=== PATIENT | female | born 1990 | race African-American/Black ===

== ENCOUNTER 2018-12-31 21:21 | Emergency (ER) | payer OTHER ==
--- OUTSIDE RECORDS SUMMARY | 2018-12-31 21:23 | XMS REPORT ---
:1990 [facility] Address [address] [place] [address] Dr. Kidd [address] [place] [id number] Care Team Providers Name Role Phone Unavailable Unavailable Unavailable Problems This patient has no known problems. Allergies, Adverse Reactions, Alerts This patient has no known allergies or adverse reactions. Medications This patient has no known medications.
[2018-12-31] MEDS ORDERED: LEVALBUTEROL 1.25 MG/3 ML NEB ONE ×2 (23:24→23:25)
--- NOTE | 2019-01-01 00:05 | EDPHYS ---
Physician Documentation [facility] Name: Tonya Sánchez Age: 28 yrs Sex: Female : 1990 Arrival Date: 12/31/2018 Time: 21:24 Bed 25 Private MD: Kristian Buchanan B ED Physician Berhane Evans HPI: 12/31 22:54 This 28 yrs old Black Female presents to ER via Ambulatory with complaints of Shortness jmm Of Breath. 22:54 The patient has shortness of breath at rest. Onset: The symptoms/episode began/occurred jmm gradually, 1 month(s) ago. Duration: The symptoms are continuous. The patient's shortness of breath is aggravated by nothing, is alleviated by nothing. Associated signs and symptoms: Pertinent negatives: fever. This is a 28 year old female with a history of anxiety, depression, seizures, that presents to the ED with complaints of cough, wheezing shortness of breath for 1 month worsening today. patient denies productive cough or fever. Patient denies chest pain. 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 - Social history:: Smoking status: Patient/guardian denies using tobacco. - Ebola Screening: : No symptoms or risks identified at this time. ROS: 22:54 Constitutional: Negative for fever, chills, and weight loss, Cardiovascular: Negative jmm for chest pain, palpitations, and edema. 22:54 Abdomen/GI: Negative for abdominal pain, nausea, vomiting, diarrhea, and constipation, Back: Negative for injury and pain. 22:54 Respiratory: Positive for cough, shortness of breath. 22:54 All other systems are negative. Exam: 22:54 Constitutional: This is a well developed, well nourished patient who is awake, alert, jmm and in no acute distress. Head/Face: atraumatic. Eyes: EOMI, no conjunctival erythema appreciated ENT: Moist Mucus Membranes Neck: Trachea midline, Supple Chest/axilla: Normal chest wall appearance and motion. Cardiovascular: Regular rate and rhythm. No edema appreciated 22:54 Skin: General appearance color normal MS/ Extremity: Moves all extremities, no obvious deformities appreciated, no edema noted to the lower extremities Neuro: Awake and alert, normal gait Psych: Behavior is normal, Mood is normal, Patient is cooperative and pleasant 22:54 Respiratory: the patient does not display signs of respiratory distress, Respirations: normal, Breath sounds: wheezing: that is mild, is heard in the left posterior upper lobe and left posterior lower lobe. Vital Signs: 21:35 BP 137 / 97; Pulse 72; Resp 16; Temp 97.7(O); Pulse Ox 100% on R/A; Weight 67.59 kg lp1 (R); Height 5 ft. 7 in. (170.18 cm); Pain 0/10; 22:50 BP 111 / 81; Pulse 74; Resp 18; Temp 98; Pulse Ox 100% on R/A; Pain 2/10; mg2 01/01 00:04 Pulse 92; Resp 18; Pulse Ox 100% on R/A; mg2 12/31 21:35 Body Mass Index 23.34 (67.59 kg, 170.18 cm) lp1 MDM: 12/31 22:54 Patient medically screened. [facility] 01/01 00:03 Data reviewed: vital signs, nurses notes. Counseling: I had a detailed discussion with abdi the patient and/or guardian regarding: the historical points, exam findings, and any diagnostic results supporting the discharge/admit diagnosis, radiology results, the need for outpatient follow up, to return to the emergency department if symptoms worsen or persist or if there are any questions or concerns that arise at home. ED course: Patient states feeling much better after nebulizer treatment. PE findings consistent with bronchitis. PERC negative. Patient advised to follow up with pcp. Patient is given strict return precautions. Patient understood and agrees with the plan of care. . 12/31 22:58 Order name: Chest Pa And Lat (2 Views) XRAY [facility] Administered Medications: 12/31 23:14 Drug: Xopenex (3) 1.25 mg Route: Inhalation; lp1 01/01 00:23 Follow up: Response: No adverse reaction; Marked relief of symptoms mg2 Disposition: 01/01/19 00:04 Discharged to Home. Impression: Acute bronchitis. - Condition is Stable. - Discharge Instructions: Acute Bronchitis, Adult. - Prescriptions for Prednisone 20 mg Oral Tablet - take 3 tablet by ORAL route once daily for 5 days; 15 tablet. Albuterol Sulfate 90 mcg/actuation - inhale 1-2 puff by INHALATION route every 4-6 hours; 1 Inhaler. - Medication Reconciliation Form, Thank You Letter, Antibiotic Education, Prescription Opioid Use form. - Follow up: Private Physician; When: 2 - 3 days; Reason: Recheck today's complaints, Continuance of care, Re-evaluation by your physician. Addendum: 01/02/2019 13:05 Co-signature as Attending Physician, Berhane Evans MD. g s Signatures: Dispatcher [employer] EDMS Sixto Degroot PA PA jmm Pena, Laura, RN RN lp1 Berhane Evans MD MD gs Kenny Matias, RN RN mg2 Corrections: (The following items were deleted from the chart) 01/01 00:24 00:04 01/01/2019 00:04 Discharged to Home. Impression: Acute bronchitis. Condition is mg2 Stable. Forms are Medication Reconciliation Form, Thank You Letter, Antibiotic Education, Prescription Opioid Use. Follow up: Private Physician; When: 2 - 3 days; Reason: Recheck today's complaints, Continuance of care, Re-evaluation by your physician. abdi
--- NOTE | 2019-01-01 00:05 | ER ---
Nurse's Notes [facility] Name: Tonya Sánchez Age: 28 yrs Sex: Female : 1990 Arrival Date: 12/31/2018 Time: 21:24 Bed 25 Private MD: Kristian Buchanan B Diagnosis: Acute bronchitis Presentation: 12/31 21:34 Presenting complaint: Patient states: Shortness of breath that began an hour and a half lp1 ago; states has had a dry cough x 4 weeks; States episodes of shortness of breath but this has lasted longer. Transition of care: patient was not received from another setting of care. Onset of symptoms was December 31, 2018. Risk Assessment: Do you want to hurt yourself or someone else? Patient reports no desire to harm self or others. Initial Sepsis Screen: Does the patient meet any 2 criteria? No. Patient's initial sepsis screen is negative. Does the patient have a suspected source of infection? No. Patient's initial sepsis screen is negative. Care prior to arrival: None. 21:34 Method Of Arrival: Ambulatory lp1 21:34 Acuity: ARTHUR 3 lp1 Triage Assessment: 21:36 General: Appears in no apparent distress. Behavior is calm, cooperative. Respiratory: lp1 Reports shortness of breath cough that is dry, Respiratory effort is even, unlabored, Respiratory pattern is regular, Breath sounds are clear bilaterally. Onset: The symptoms/episode began/occurred 4 weeks, the patient has mild shortness of breath. 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 - Social history:: Smoking status: Patient/guardian denies using tobacco. - Ebola Screening: : No symptoms or risks identified at this time. Screenin:36 Abuse screen: Denies threats or abuse. Denies injuries from another. Nutritional lp1 screening: No deficits noted. Tuberculosis screening: No symptoms or risk factors identified. Fall Risk None identified. Assessment: 22:51 General: Appears in no apparent distress. comfortable, Behavior is calm, cooperative. mg2 Pain: Complains of pain in head. Neuro: Level of Consciousness is awake, alert, obeys commands, Oriented to person, place, time, situation, Reports headache. Cardiovascular: Capillary refill < 3 seconds Patient's skin is warm and dry. Respiratory: Airway is patent Respiratory effort is even, unlabored, Respiratory pattern is regular, symmetrical, Breath sounds are clear bilaterally. in left posterior upper lobe, right posterior upper lobe, left posterior lower lobe, right posterior middle lobe and right posterior lower lobe. GI: No signs and/or symptoms were reported involving the gastrointestinal system. : No signs and/or symptoms were reported regarding the genitourinary system. EENT: No signs and/or symptoms were reported regarding the EENT system. Derm: Skin is intact, is healthy with good turgor, Skin is pink, warm \T\ dry. normal. Musculoskeletal: Circulation, motion, and sensation intact. Capillary refill < 3 seconds. 01/01 00:23 Reassessment: Patient states feeling better. Patient states symptoms have improved. mg2 Vital Signs: 12/31 21:35 BP 137 / 97; Pulse 72; Resp 16; Temp 97.7(O); Pulse Ox 100% on R/A; Weight 67.59 kg lp1 (R); Height 5 ft. 7 in. (170.18 cm); Pain 0/10; 22:50 BP 111 / 81; Pulse 74; Resp 18; Temp 98; Pulse Ox 100% on R/A; Pain 2/10; mg2 01/01 00:04 Pulse 92; Resp 18; Pulse Ox 100% on R/A; mg2 12/31 21:35 Body Mass Index 23.34 (67.59 kg, 170.18 cm) lp1 ED Course: 12/31 21:24 Patient arrived in ED. es 21:25 Kristian Buchanan MD is Private Physician. es 21:35 Triage completed. lp1 21:35 Arm band placed on right wrist. lp1 22:25 Sixto Degroot PA is PHCP. [facility] 22:25 Berhane Evans MD is Attending Physician. [facility] 22:27 Kenny Matias, EDUARDA is Primary Nurse. mg2 22:52 Patient has correct armband on for positive identification. mg2 22:52 No provider procedures requiring assistance completed. Patient did not have IV access mg2 during this emergency room visit. 23:12 X-ray completed. Patient tolerated procedure well. ml 23:14 Chest Pa And Lat (2 Views) XRAY In Process Unspecified. EDMS Administered Medications: 23:14 Drug: Xopenex (3) 1.25 mg Route: Inhalation; lp1 01/01 00:23 Follow up: Response: No adverse reaction; Marked relief of symptoms mg2 Outcome: 00:04 Discharge ordered by MD. patton 00:23 Discharged to home ambulatory. mg2 00:23 Condition: stable 00:23 Discharge instructions given to patient, Instructed on discharge instructions, follow up and referral plans. medication usage, Demonstrated understanding of instructions, follow-up care, medications, Prescriptions given X 2. 00:24 Patient left the ED. mg2 Signatures: Dispatcher [employer] EDMS Sixto Degroot PA PA jmm Salyer, Edna es Lopez, Melissa ml Pena, Laura, RN RN lp1 Kenny Matias RN RN mg2
--- NOTE | 2019-01-01 10:08 | RAD REPORT ---
EXAM DESCRIPTION: XR Chest, 2 Views CLINICAL HISTORY: The patient is 28 years old and is Female; cough, shortness of breath TECHNIQUE: Frontal and lateral views of the chest. COMPARISON: No relevant prior studies available. FINDINGS: LUNGS: Unremarkable. No consolidation. PLEURAL SPACE: Unremarkable. No pneumothorax. HEART: Unremarkable. No cardiomegaly. MEDIASTINUM: Unremarkable. BONES/JOINTS: Unremarkable. IMPRESSION: No acute cardiopulmonary process. Electronically signed by: Yen Santa MD 12/31/2018 11:49 PM CDT Due to temporary technical issues with the PACS/[employer]ency reporting system, reports are being signed by the in house radiologist as a courtesy to ensure prompt reporting. The interpreting radiologist is f ully responsible for the content of the report.
== END 2019-01-01 00:24 | disposition home or self-care (01) ==
LOC: ER 21:21
DX: J20.9 Acute bronchitis, unspecified (principal); F41.9 Anxiety disorder, unspecified; F32.9 Major depressive disorder, single episode, unspecified
CPT/HCPCS: 71046; 99284

== ENCOUNTER 2024-07-27 00:53 | Emergency (ER) | payer OTHER ==
[2024-07-27] MEDS ORDERED: LIDOCAINE 2% W/EPI 1:200,000 MPF 20 ML VIAL IM ONE (01:24)
[2024-07-27] MEDS ORDERED: METOCLOPRAMIDE 5 MG TAB ONE (01:25)
[2024-07-27] MEDS ORDERED: ACETAMINOPHEN 500 MG TAB ONE (01:25)
[2024-07-27] MEDS ORDERED: IBUPROFEN 400 MG TAB ONE (01:25)
[2024-07-27] MEDS ORDERED: LIDOCAINE HCL JELLY 2% 6 ML SYRINGE TOP ONE (01:26)
--- NOTE | 2024-07-27 02:57 | ER ---
Nurse's Notes [facility] Name: Tonya Santiago Age: 34 yrs Sex: Female : 1990 Arrival Date: 07/27/2024 Time: 00:53 Bed 5 Private MD: Diagnosis: Scalp Laceration/ Open wound of scalp Presentation: 07/27 01:13 Chief complaint: Patient states: S/P MISSED A STEP CAUSING HER TO FALL AND HIT HEAD. br2 DENIES LOC. PT ARRIVES TO ER WITH LACERATION TO RIGHT FOREHEAD. PT ADMIT TO ETOH ON BOARD. Coronavirus screen: Client denies travel out of the [place] in the last 14 days. Ebola Screen: Patient denies exposure to infectious person. Initial Sepsis Screen: Does the patient meet any 2 criteria? No. Patient's initial sepsis screen is negative. Does the patient have a suspected source of infection? No. Patient's initial sepsis screen is negative. Risk Assessment: Do you want to hurt yourself or someone else? Patient reports no desire to harm self or others. Onset of symptoms was July 27, 2024 at 00:00. 01:13 Method Of Arrival: Wheelchair br2 01:13 Acuity: ARTHUR 3 br2 01:13 Care prior to arrival: None. Mechanism of Injury: Fall down 1 steps. br2 Historical: - Allergies: 01:15 NKA; br2 - PMHx: 01:15 Anxiety; Depression; br2 - Immunization history:: Adult Immunizations not up to date, Last tetanus immunization: up to date. - Infectious Disease History:: Denies. - Social history:: Smoking status: Patient denies any tobacco usage or history of. Patient uses alcohol, occasionally. Screenin:13 [facility] ED Fall Risk Assessment (Adult) History of falling in the last 3 months, br2 including since admission Yes- single mechanical fall (1 pt) Confusion or Disorientation No (0 pts) Intoxicated or Sedated No (0 pts) Impaired Gait No (0 pts) Mobility Assist Device Used No (0 pt) Altered Elimination No (0 pt) Score/Fall Risk Level 0 - 2 = Low Risk Oriented to surroundings. Abuse screen: Denies threats or abuse. Denies injuries from another. Nutritional screening: No deficits noted. Tuberculosis screening: No symptoms or risk factors identified. Assessment: 01:13 General: Appears in no apparent distress. comfortable, Behavior is calm, cooperative. br2 Pain: Complains of pain in right side of forehead Pain does not radiate. Pain currently is 10 out of 10 on a pain scale. Neuro: Level of Consciousness is awake, alert, obeys commands, Oriented to person, place, time, situation. EENT: No signs and/or symptoms were reported regarding the EENT system. Cardiovascular: Capillary refill < 3 seconds. Respiratory: Airway is patent Respiratory effort is even, unlabored, Respiratory pattern is regular, symmetrical. GI: No signs and/or symptoms were reported involving the gastrointestinal system. : No signs and/or symptoms were reported regarding the genitourinary system. Derm: Skin is moist, Skin is pink, warm \T\ dry. Skin temperature is warm LACERATION Reports pain that is 10 out of 10 on a pain scale. Musculoskeletal: No signs and/or symptoms reported regarding the musculoskeletal system. Injury Description: Laceration sustained to right side of forehead. 02:40 Reassessment: Patient and/or family updated on plan of care and expected duration. Pain br2 level reassessed. Patient is alert, oriented x 3, equal unlabored respirations, skin warm/dry/pink. Vital Signs: 01:13 BP 121 / 85; Pulse 111; Resp 18; Temp 97.2; Pulse Ox 98% on R/A; Weight 64.86 kg; br2 Height 5 ft. 6 in. ; Pain 10/10; 02:40 BP 105 / 79; Pulse 94; Resp 18; Pulse Ox 100% ; Pain 0/10; br2 01:13 Body Mass Index 23.08 (64.86 kg, 167.64 cm) br2 01:13 Pain Scale: Adult br2 02:40 Pain Scale: Adult br2 ED Course: 00:54 Patient arrived in ED. jj6 00:55 Izaiah Mcguire MD is Attending Physician. ec2 01:13 Patient has correct armband on for positive identification. Bed in low position. Call br2 light in reach. Side rails up X 1. Provided Education on: PLAN OF CARE. 01:15 Triage completed. br2 01:23 CT Head Brain wo Cont In Process Unspecified. EDMS 01:50 Taya Cuello RN is Primary Nurse. br2 03:10 Assist provider with laceration repair using sutures. Set up tray. Performed by Izaiah marques2 Shayla MARROQUIN Patient tolerated well. 03:11 Patient did not have IV access during this emergency room visit. br2 Administered Medications: 01:33 Drug: Lidocaine Topical Solution (4%) 10 ml Topical once Route: Topical; Site: forehead;br2 02:00 Follow up: Response: No adverse reaction br2 01:33 Drug: Acetaminophen PO 1000 mg PO once Route: PO; br2 02:00 Follow up: Response: No adverse reaction br2 01:33 Drug: Ibuprofen PO 800 mg PO once Route: PO; br2 02:00 Follow up: Response: No adverse reaction br2 01:33 Drug: MetoCLOPramide PO 10 mg PO once Route: PO; br2 02:00 Follow up: Response: No adverse reaction br2 01:50 Drug: Lidocaine-Epinephrine Infiltration -1%: (1:100,000) 10 ml 20 ml Infiltration br2 once; to bedside Volume: 20 ml; Route: Infiltration; 02:00 Follow up: Response: No adverse reaction br2 Medication: 03:11 VIS not applicable for this client. br2 Outcome: 02:56 Discharge ordered by . ec2 03:10 Discharged to home ambulatory, br2 03:10 Condition: good 03:10 Discharge instructions given to patient, Instructed on discharge instructions, follow up and referral plans. Demonstrated understanding of instructions, follow-up care, 03:11 Patient left the ED. br2 Signatures: Dispatcher [employer] [place] [id number] Izaiah Mcguire MD MD ec2 Taya Cuello RN RN br2
--- NOTE | 2024-07-27 02:57 | EDPHYS ---
Physician Documentation [facility] Name: Tonya Santiago Age: 34 yrs Sex: Female : 1990 Arrival Date: 07/27/2024 Time: 00:53 Bed 5 Private MD: ED Physician Izaiah Mcguire HPI: 07/27 01:20 This 34 yrs old Black Female presents to ER via Wheelchair with complaints of Fall ec2 Injury, Head Injury Without LOC-Adult, Laceration To Head. 01:20 Patient arrives today for evaluation of a head injury. States that she had fallen down ec2 stairs and injured her head and sustained a laceration. Up-to-date on tetanus shot, most recently approximately 1 week ago. No LOC, not on blood thinners. Complaining of head pain.. Historical: - Allergies: 01:15 NKA; br2 - PMHx: 01:15 Anxiety; Depression; br2 - Immunization history:: Adult Immunizations not up to date, Last tetanus immunization: up to date. - Infectious Disease History:: Denies. - Social history:: Smoking status: Patient denies any tobacco usage or history of. Patient uses alcohol, occasionally. ROS: 01:20 Constitutional: as per hpi ec2 Exam: 01:20 Constitutional: GEN: NAD Head: atraumatic Eyes: EOMI Ears: External ears are ec2 normal. CV: tachycardiaLUNGS: no respiratory distress ABD: non-distended SKIN: Approximately 2 cm laceration to the right forehead. MSK: no evidence of trauma Vital Signs: 01:13 BP 121 / 85; Pulse 111; Resp 18; Temp 97.2; Pulse Ox 98% on R/A; Weight 64.86 kg; br2 Height 5 ft. 6 in. ; Pain 10/10; 02:40 BP 105 / 79; Pulse 94; Resp 18; Pulse Ox 100% ; Pain 0/10; br2 01:13 Body Mass Index 23.08 (64.86 kg, 167.64 cm) br2 01:13 Pain Scale: Adult br2 02:40 Pain Scale: Adult br2 Laceration: 02:43 Wound Repair of 2cm ( 0.8in ) subcutaneous laceration to right side of forehead. Distal ec2 neuro/vascular/tendon intact. Anesthesia: Local anesthetic administered with 7 mls of 2% lidocaine. Wound prep: Moderate cleansing. Skin closed with 3 4-0 Silk using simple sutures and sterile technique. Patient tolerated well. MDM: 00:59 Medical Screening Exam initiated ec2 01:20 Data reviewed: vital signs, nurses notes. ED course: Patient arrives today for ec2 evaluation of a head injury. Will obtain CT scan of the head, repair the laceration. Differential diagnosis considered include contusion, laceration, fracture, intracranial brain bleed.. 02:43 ED course: Laceration repaired without issue. Will discharge home have the patient ec2 follow-up back in the ED for removal of stitches.. 02:57 ED course: CT scan of the head on my interpretation shows no acute intracranial brain ec2 bleed.. 07/27 01:08 Order name: CT Head Brain wo Cont ec2 07/27 01:08 Order name: Wound Care; Complete Time: 01:50 ec2 Administered Medications: 01:33 Drug: Lidocaine Topical Solution (4%) 10 ml Topical once Route: Topical; Site: forehead;br2 02:00 Follow up: Response: No adverse reaction br2 01:33 Drug: Acetaminophen PO 1000 mg PO once Route: PO; br2 02:00 Follow up: Response: No adverse reaction br2 01:33 Drug: Ibuprofen PO 800 mg PO once Route: PO; br2 02:00 Follow up: Response: No adverse reaction br2 01:33 Drug: MetoCLOPramide PO 10 mg PO once Route: PO; br2 02:00 Follow up: Response: No adverse reaction br2 01:50 Drug: Lidocaine-Epinephrine Infiltration -1%: (1:100,000) 10 ml 20 ml Infiltration br2 once; to bedside Volume: 20 ml; Route: Infiltration; 02:00 Follow up: Response: No adverse reaction br2 Disposition Summary: 07/27/24 02:56 Discharge Ordered Notes: You need to have the stitches removed in 7 to 10 days. Location: Home ec2 Condition: Stable ec2 Diagnosis - Scalp Laceration/ Open wound of scalp ec2 Followup: ec2 - With: Private Physician - When: - Reason: Re-evaluation by your physician Discharge Instructions: - Discharge Summary Sheet ec2 - Sutures, [place], or Adhesive Wound Closure, [id number] ec2 Forms: - Medication Reconciliation Form ec2 - Antibiotic Education ec2 - Prescription Opioid Use ec2 - Patient Portal Instructions ec2 - Leadership Thank You Letter ec2 Signatures: Dispatcher [employer] EDMS Izaiah Mcguire MD MD ec2 Taya Cuello RN RN br2 Corrections: (The following items were deleted from the chart) 01:21 01:20 Constitutional: GEN: NAD Head: atraumatic Eyes: EOMI Ears: External ears are ec2 normal. CV: regular rate LUNGS: no respiratory distress ABD: non-distended SKIN: Approximately 2 cm laceration to the right forehead. MSK: no evidence of trauma ec2
--- NOTE | 2024-07-27 05:48 | RAD REPORT ---
PROCEDURE: CT Head Without Intravenous Contrast CLINICAL INDICATION: The patient is 34 years old and is Female; Fall injury. TECHNIQUE: Axial computed tomography images of the head/brain without intravenous contrast. Sagittal and coron al reformatted images were created and reviewed. This CT exam was performed using one or more of the following dose reduction techniques: automated exposure control, adjustment of the mA and/or kV according to patient size, and/or use of iterative reconstruction technique. COMPARISON: None. FINDINGS: BRAIN: No extra-axial fluid collection. No intracranial hemorrhage. No transtentorial herniation. N o focal peña-white matter differentiation abnormality. MIDLINE SHIFT: None. VENTRICLES: Unremarkable No ventriculomegaly. BONES/JOINTS: No fracture of the calvarium or visualized facial bones. SOFT TISSUES: Small soft tissue contusion with superficial cutaneous defect noted involving the rig ht lateral frontal scalp. SINUSES: No masses, bony erosion or evidence of acute sinusitis. MASTOID AIR CELLS: Unremarkable as visualized. No mastoid effusion. IMPRESSION: 1. Small soft tissue contusion with superficial cutaneous defect noted involving the right lateral frontal scalp. 2. No acute intracranial abnormality. No fracture of the calvarium or visualized facial bones. Electronically signed by: Jose Elias Toscano MD 07/27/2024 02:54 AM [facility] Due to temporary technical issues with the PACS/[employer] reporting system, reports are being pat d by the in-house radiologist without review as a courtesy to ensure prompt reporting the interpreting radiologist is fully responsible for the content of the report. Transcribed Date/Time: 07/27/2024 5:48 AM
[2024-07-29 15:50] VITALS: BP 121/85; TEMP 97.2; O2SAT 98
== END 2024-07-27 03:11 | disposition home or self-care (01) ==
LOC: ER 00:53
DX: S01.01XA Laceration without foreign body of scalp, initial encounter (principal); W10.9XXA Fall (on) (from) unspecified stairs and steps, initial encounter
CPT/HCPCS: 12011; 70450; 99283

== ENCOUNTER 2024-08-08 10:38 | Emergency (ER) | payer OTHER ==
--- NOTE | 2024-08-08 11:04 | ER ---
Nurse's Notes [facility] Name: Tonya Santiago Age: 34 yrs Sex: Female : 1990 Arrival Date: 08/08/2024 Time: 10:38 Bed 12 Private MD: Diagnosis: Encounter for removal of sutures Presentation: 08/08 10:46 Chief complaint: Received sutures to right forehead 10 days ago, here for removal. hb Coronavirus screen: At this time, the client does not indicate any symptoms associated with coronavirus-19. Ebola Screen: No symptoms or risks identified at this time. Initial Sepsis Screen: Does the patient meet any 2 criteria? No. Patient's initial sepsis screen is negative. Does the patient have a suspected source of infection? No. Patient's initial sepsis screen is negative. Risk Assessment: Do you want to hurt yourself or someone else? Patient reports no desire to harm self or others. Onset of symptoms was August 08, 2024. 10:46 Method Of Arrival: Ambulatory hb 10:46 Acuity: ARTHUR 4 hb Triage Assessment: 10:47 General: Appears in no apparent distress. Behavior is calm, cooperative. Pain: Denies hb pain. Neuro: GCS 15. Cardiovascular: Patient's skin is warm and dry. Respiratory: Respiratory effort is even, unlabored, Respiratory pattern is regular, symmetrical. Derm: sutures noted to right forehead. TELEPHONE RECORDER: 11:08 LMP N/A - control method, Not ap3 Historical: - Allergies: 10:47 NKA; hb - PMHx: 10:47 Anxiety; Depression; Seizures; hb - Immunization history:: Adult Immunizations up to date. - Infectious Disease History:: Denies. - Social history:: Smoking status: Patient denies any tobacco usage or history of. - Family history:: not pertinent. Screenin:48 [facility] ED Fall Risk Assessment (Adult) History of falling in the last 3 months, hb including since admission No falls in past 3 months (0 pts) Confusion or Disorientation No (0 pts) Intoxicated or Sedated No (0 pts) Impaired Gait No (0 pts) Mobility Assist Device Used No (0 pt) Altered Elimination No (0 pt) Score/Fall Risk Level 0 - 2 = Low Risk Oriented to surroundings, Maintained a safe environment, Educated pt \T\ family on fall prevention, incl call for assistance when getting out of bed. Abuse screen: Denies threats or abuse. Denies injuries from another. Nutritional screening: No deficits noted. Tuberculosis screening: No symptoms or risk factors identified. Assessment: 10:48 General: See triage assessment. hb Vital Signs: 10:46 BP 128 / 78; Pulse 88; Resp 16; Temp 97.3; Pulse Ox 100% on R/A; Pain 0/10; hb 10:46 Pain Scale: Adult hb ED Course: 10:40 Patient arrived in ED. im 10:40 Juanjose Gipson MD is Attending Physician. rt 10:47 Triage completed. hb 10:47 Arm band placed on. hb 10:48 Patient has correct armband on for positive identification. Provided Education on: use hb of call light . 10:48 No provider procedures requiring assistance completed. Patient did not have IV access hb during this emergency room visit. Administered Medications: No medications were administered Medication: 10:48 VIS not applicable for this client. hb Outcome: 11:04 Discharge ordered by . rt 11:08 Discharged to home ambulatory, ap3 11:08 Condition: good 11:08 Discharge instructions given to patient, Instructed on discharge instructions, follow up and referral plans. Demonstrated understanding of instructions, follow-up care, 11:08 Patient left the ED. ap3 Signatures: Porsche Stewart RN RN Antonette Negro RN RN ap3 Juanjose Gipson MD MD rt Mirian Church im
--- NOTE | 2024-08-08 11:04 | EDPHYS ---
Physician Documentation [facility] Name: Tonya Santiago Age: 34 yrs Sex: Female : 1990 Arrival Date: 08/08/2024 Time: 10:38 Bed 12 Private MD: ED Physician Juanjose Gipson HPI: 08/08 14:17 This 34 yrs old Black Female presents to ER via Ambulatory with complaints of Suture rt Removal. 14:17 Patient presents to the ED requesting suture removal. Patient had 3 sutures placed to rt the right forehead. States that is healing well. Denies other acute complaint at this time, symptoms are mild in severity, no other aggravating alleviating factors.. MAINTENANCE COORDINATOR: 11:08 LMP N/A - control method, Not ap3 Historical: - Allergies: 10:47 NKA; hb - PMHx: 10:47 Anxiety; Depression; Seizures; hb - Immunization history:: Adult Immunizations up to date. - Infectious Disease History:: Denies. - Social history:: Smoking status: Patient denies any tobacco usage or history of. - Family history:: not pertinent. ROS: 14:17 Constitutional: Negative for fever, chills, and weight loss, Neuro: Negative for rt headache, weakness, numbness, tingling, and seizure, Psych: Negative for depression, anxiety, suicide ideation, homicidal ideation, and hallucinations, 14:17 Skin: Positive for Repaired laceration, Exam: 14:17 Constitutional: This is a well developed, well nourished patient who is awake, alert, rt and in no acute distress. MS/ Extremity: Pulses equal, no cyanosis. Neurovascular intact. Full, normal range of motion. Neuro: Awake and alert, GCS 15, oriented to person, place, time, and situation. Cranial nerves II-XII grossly intact. Motor strength 5/5 in all extremities. Sensory grossly intact. Cerebellar exam normal. Normal gait. 14:17 Skin: Well-healed laceration to the right forehead no purulence, signs of cellulitis. Vital Signs: 10:46 BP 128 / 78; Pulse 88; Resp 16; Temp 97.3; Pulse Ox 100% on R/A; Pain 0/10; hb 10:46 Pain Scale: Adult hb Procedures: 14:17 Suture/Staple removal: Removed 3 sutures, from forehead, site appears well healed, rt Patient tolerated well. MDM: 10:59 Medical Screening Exam initiated rt 14:17 Data reviewed: vital signs, nurses notes. Counseling: I had a detailed discussion with rt the patient and/or guardian regarding the historical points, exam findings, and any diagnostic results supporting the discharge/admit diagnosis, the need for outpatient follow up. Administered Medications: No medications were administered Disposition Summary: 08/08/24 11:04 Discharge Ordered Notes: Location: Home rt Problem: new rt Symptoms: have improved rt Condition: Stable rt Diagnosis - Encounter for removal of sutures rt Followup: rt - With: Private Physician - When: 5 - 6 days - Reason: Discharge Instructions: - Discharge Summary Sheet rt - Suture Removal, Care After rt Forms: - Medication Reconciliation Form rt - Antibiotic Education rt - Prescription Opioid Use rt - Patient Portal Instructions rt - Leadership Thank You Letter rt Signatures: Porsche Stewart RN RN Juanjose Negrete MD MD rt
[2024-08-08 12:27] VITALS: BP 128/78; TEMP 97.3; O2SAT 100
== END 2024-08-08 11:08 | disposition home or self-care (01) ==
LOC: ER 10:38
DX: Z48.02 Encounter for removal of sutures (principal)
CPT/HCPCS: 99281; 99282